=== PATIENT | female | born 1965 ===

== ENCOUNTER 2016-05-20 15:04 | Observation (INO) | payer OTHER ==
[2016-05-20] MEDS ORDERED: Iohexol 240 (50 ml) PO STA (16:04)
[2016-05-20] MEDS ORDERED: Sodium Chloride 0.9% 1,000 ML IV ONE (16:04)
--- NOTE | 2016-05-20 16:04 | C.PDOC ---
History Of Present Illness <Lizz Arechiga - Last Filed: 05/20/16 18:55> <Palmer Hernandez [place] - Last Filed: 05/20/16 20:26> 50-year-old female, presents to the emergency department with complaints of left -inguinal pain that started two days ago. Pain is persistent in nature and non- radiating. Patient took Pepto-Bismol with minimal relief. Patient states she feels "gas" and has associated dark stool. Secondary complaint is pain in lower extremities which feels like her lupus flare-up. Denies nausea/vomiting, dizziness, chest pain, back pain, or any other associated symptoms. No other complaints at this time. Of note, patient was seen by GI doctor yesterday. GI Dr Trista Bhatia (Lizz Arechiga) History Per: Patient History/Exam Limitations: no limitations Onset/Duration Of Symptoms: Days Current Symptoms Are (Timing): Still Present <Lizz Arechiga - Last Filed: 05/20/16 18:55> <Palmer Hernandez - Last Filed: 05/20/16 20:26> Time Seen by Provider: 05/20/16 15:41 Chief Complaint (Nursing): Abdominal Pain Past Medical History Reviewed: Historical Data, Nursing Documentation, Vital Signs - Medical History PMH: Anxiety, Back Problems, Depression, Emphysema, Fibromyalgia, Osteoporosis, Rheumatoid Arthritis Denies: Diabetes, Hepatitis, HIV, HTN, Chronic Kidney Disease, Seizures, Sexually Transmitted Disease Family History: States: Unknown Family Hx - Social History Hx Tobacco Use: Yes Hx Alcohol Use: No Hx Substance Use: Yes - Immunization History Hx Tetanus Toxoid Vaccination: No Hx Influenza Vaccination: Yes Hx Pneumococcal Vaccination: No <Lizz Arechiga - Last Filed: 05/20/16 18:55> Vital Signs: Last Vital Signs Temp 98.1 F 05/20/16 15:07 Pulse 75 05/20/16 16:51 Resp 18 05/20/16 16:51 BP 110/78 05/20/16 16:51 Pulse Ox 100 05/20/16 18:56 - [facility] Procedures DETOXIFICATION SERVICES FOR SUBSTANCE ABUSE TREATMENT (01/28/16) Review Of Systems Except As Marked, All Systems Reviewed And Found Negative. Constitutional: Negative for: Fever, Chills Cardiovascular: Negative for: Chest Pain Respiratory: Negative for: Cough, Shortness of Breath Gastrointestinal: Positive for: Abdominal Pain. Negative for: Nausea, Vomiting Genitourinary: Negative for: Dysuria, Frequency, Vaginal Discharge, Vaginal Bleeding Musculoskeletal: Positive for: Leg Pain. Negative for: Back Pain Skin: Negative for: Rash Neurological: Negative for: Weakness, Numbness, Headache, Dizziness <Lizz Arechiga - Last Filed: 05/20/16 18:55> Physical Exam - Physical Exam Appears: Non-toxic, No Acute Distress Skin: Normal Color, Warm, Dry Eye(s): bilateral: Normal Inspection, PERRL, EOMI Nose: Normal Neck: Normal ROM Cardiovascular: Rhythm Regular Respiratory: Normal Breath Sounds Gastrointestinal/Abdominal: Soft, Tenderness (mild, left suprapubic), No Guarding, No Rebound Rectal: Other (NO STOOL) Back: Normal Inspection Extremity: Normal ROM Neurological/Psych: Oriented x3, Normal Speech <Lizz Arechiga - Last Filed: 05/20/16 18:55> ED Course And Treatment - Laboratory Results Result Diagrams: 05/20/16 16:49 05/20/16 16:49 O2 Sat by Pulse Oximetry: 100 <Lizz Arechiga - Last Filed: 05/20/16 18:55> - Laboratory Results Result Diagrams: 05/20/16 16:49 05/20/16 16:49 - CT Scan/US CT abdomen/pelvis Other Rad Studies (CT/US): Read By Radiologist, Radiology Report Reviewed CT/US Interpretation: IMPRESSION: Nonobstructing left renal stones, no ureteral stones or. hydronephrosis; no acute solid visceral or bowel abnormality; nonvisualization. the appendix; minimal diverticulosis without CT findings of diverticulitis. . Additional findings as described above. Progress Note: Pt was signed out to me by Dr. Arechiga at 7pm to f/up CT scan results. Pt feels better and wants to go home. Reassessment Condition: Improved <Palmer Hernandez - Last Filed: 05/20/16 20:26> ED OBSERVATION Date of observation admission: 05/20/16 Time of observation admission: 16:00 <Lizz Arechiga - Last Filed: 05/20/16 18:55> <Palmer Hernandez - Last Filed: 05/20/16 20:26> - Observation admission statement Patient is being placed in observation because:: ABD PAIN; LUPUS EXAC (Lizz Arechiga) - Goals of Observation Goals of observation are:: NEG ACUTE ABD; SX IMPROVE (Lizz Arechiga) - Progress Note Progress Note: 05/20/16 18:55 EXAM IMPROVE COMPARED TO PRIOR S/P MORPHINE AND DILAUDID. PENDING CT S/O DR MYAH MILLER CT, DISPO (Lizz Arechiga) Disposition <Lizz Arechiga - Last Filed: 05/20/16 18:55> Counseled Patient/Family Regarding: Studies Performed, Diagnosis, Need For Followup, Rx Given - Disposition Disposition Time: 20:26 <Palmer Hernandez - Last Filed: 05/20/16 20:26> - Disposition Disposition: HOME/ ROUTINE Condition: IMPROVED - Clinical Impression Clinical Impression: Abdominal pain, Diarrhea, Urinary tract infection - Scribe Statement The provider has reviewed the documentation as recorded by the Scribe <Lizz Arechiga - Last Filed: 05/20/16 18:55> <Palmer Hernandez - Last Filed: 05/20/16 20:26> - Scribe Statement Daron Thomas All medical record entries made by the Scribe were at my direction and personally dictated by me. I have reviewed the chart and agree that the record accurately reflects my personal performance of the history, physical exam, medical decision making, and the department course for this patient. I have also personally directed, reviewed, and agree with the discharge instructions and disposition. (Lizz Arechiga)
[2016-05-20] MEDS ORDERED: Morphine 4 MG/ML VIAL ONE (16:40)
[2016-05-20] MEDS ORDERED: Iohexol 240 (50 ml) ONE (16:41)
[2016-05-20 16:53] LABS: BASO % 0.4 % (0.0-2.0); EOS # 0.1 K/uL (0.0-0.7); EOS % 0.9 % (0.0-4.0); HEMATOCRIT 45.2 % (34.0-47.0); LYMPH # 2.8 K/uL (1.0-4.3); LYMPH % 37.4 % (20.0-40.0); MEAN CELL VOLUME 84.9 fL (81.0-99.0); MEAN CORPUSCULAR HEMOGLOBIN 27.8 pg (27.0-31.0); MEAN CORPUSCULAR HGB CONC 32.8 g/dL (33.0-37.0); MEAN PLATELET VOLUME 9.1 fL (7.2-11.7); MONO # 0.5 K/uL (0.0-0.8); MONO % 6.1 % (0.0-10.0); NRBC % 0.1 % (0.0-2.0); RED CELL DISTRIBUTION WIDTH 13.7 % (11.5-14.5); WHITE BLOOD COUNT 7.5 K/uL (4.8-10.8)
[2016-05-20 16:54] VITALS: RESP 18
[2016-05-20 17:02] LABS: CHLORIDE 99 mmol/L (98-107); POTASSIUM 5.5 mmol/L (3.6-5.2); SODIUM 139 mmol/L (132-148)
[2016-05-20 17:03] LABS: RBC URINE 2 /hpf (0-3); TRANSITIONAL EPITHIAL < 1 /hpf (0-3); URINE BACTERIA MOD (<OCC); URINE BILIRUBIN NEGATIVE (NEGATIVE); URINE BLOOD NEGATIVE (NEGATIVE); URINE COLOR Yellow (YELLOW); URINE GLUCOSE (UA) NORMAL (Normal); URINE KETONE NEGATIVE (NEGATIVE); URINE PROTEIN NEGATIVE (NEGATIVE); URINE UROBILINOGEN NORMAL mg/dL (0.2-1.0); WBC URINE 10 /hpf (0-5)
[2016-05-20 17:04] LABS: GFR AFRICAN-AMERICAN > 60; URINE LEUKOCYTE ESTERASE 1+ Leu/uL (Negative)
[2016-05-20 17:05] LABS: ALB/GLOB RATIO 1.2 (1.0-2.1); ALKALINE PHOSPHATASE 69 U/L (38-126); ALT/SGPT 25 U/L (9-52); AST/SGOT 50 U/L (14-36); BLOOD UREA NITROGEN 9 mg/dL (7-17); CALCIUM 8.6 mg/dl (8.6-10.4); CARBON DIOXIDE 26 mmol/L (22-30); GLUCOSE,RANDOM 79 mg/dL (65-105); TOTAL PROTEIN 7.8 g/dL (6.3-8.3)
[2016-05-20] MEDS ORDERED: HYDROmorphone 0.5 mg/0.5 ml ISec IVP STA (18:04)
[2016-05-20] MEDS ORDERED: HYDROmorphone 1 mg/ml ISec ONE (18:15)
--- NOTE | 2016-05-20 20:09 | CT ---
EXAM: CT Abdomen and Pelvis With Intravenous Contrast. CLINICAL HISTORY: 50 years old, female; Pain and condition or disease; Other: Gi bleed; Abdominal pain; Localized; Left lower quadrant (llq); Additional info: Llq pain, gi bleed; Ho kidney stone TECHNIQUE: Axial computed tomography images of the abdomen and pelvis with intravenous contrast. This CT exam was performed using one or more of the following dose reduction techniques: automated exposure control, adjustment of the mA and/or kV according to patient size, and/or use of iterative reconstruction technique. Coronal and sagittal reformatted images were created and reviewed. CONTRAST: 50 mL of omnipaque 240 administered intravenously. EXAM DATE/TIME: 05/20/2016 4:05 PM COMPARISON: Prior images are not available for review. FINDINGS: Lower thorax: Heart size is normal. There is a small hiatal hernia. There is small amount of oral contrast in the distal esophagus. There is minimal scarring at the lung bases. There is pleural thickening at the left base. ABDOMEN: Liver: unremarkable Gallbladder and bile ducts: unremarkable Pancreas: unremarkable Spleen: unremarkable Adrenals: unremarkable Kidneys and ureters: There are tiny nonobstructing left renal stones. 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 Stomach and bowel: Stomach is incompletely distended which accentuates the gastric wall.Bowel rotation is normal.There is no obstruction. Terminal ileum is unremarkable. Appendix is not visualized. There is no pericecal inflammation. Cecum is low in the pelvis.Colon is incompletely distended which limits evaluation.there is oral contrast in ascending and transverse colon. There is minimal radiopaque material in stool in the descending colon and sigmoid. There is diverticulosis. No bleeding site is identified. Appendix: See stomach and bowel PELVIS: Bladder: Bladder is partially distended Reproductive: Uterus and adnexal structures are unremarkable. ABDOMEN and PELVIS: Intraperitoneal space: There is no significant fluid.There is no free air. Bones/joints: There are degenerative changes in the osseus structures. Soft tissues: There is a fat-containing umbilical hernia. Vasculature: There are vascular calcifications. Lymph nodes: There is shotty para-aortic adenopathy IMPRESSION: Nonobstructing left renal stones, no ureteral stones or hydronephrosis; no acute solid visceral or bowel abnormality; nonvisualization the appendix; minimal diverticulosis without CT findings of diverticulitis Additional findings as described above.
[2016-05-20 20:49] VITALS: BP 129/88; PULSE 70; TEMP 98.3; O2SAT 96
== END 2016-05-20 20:15 | disposition home or self-care (01) ==
LOC: C.ER 15:04 → C.9OBSV 16:04
PROVIDERS: ADMIT Emergency Medicine; ATTEND Emergency Medicine
DX: R10.9 Unspecified abdominal pain (principal); R19.7 Diarrhea, unspecified; Z87.891 Personal history of nicotine dependence; M32.9 Systemic lupus erythematosus, unspecified; N39.0 Urinary tract infection, site not specified; J43.9 Emphysema, unspecified
CPT/HCPCS: 36415; 74176; 80053; 81001; 83690; 85025; 96374; 96375; 99283; G0328; G0378; J1170 ×2; J2270; J2405; Q9966

== ENCOUNTER 2018-05-03 15:00 | Outpatient (CLI) | payer OTHER | END 2018-05-03 15:01 | disposition home or self-care (01) | LOC: C.MAMMO 15:00 | DX: R22.9 Localized swelling, mass and lump, unspecified (principal) ==

== ENCOUNTER → 2018-05-12 | Outpatient (CLI) | payer OTHER | LOC: C.MRIC 15:19 | DX: M51.26 Other intervertebral disc displacement, lumbar region (principal) ==

== ENCOUNTER 2018-05-16 09:37 | Outpatient (CLI) | payer OTHER | END 2018-05-16 09:38 | disposition home or self-care (01) | LOC: C.SPRAD 09:37 | DX: N63.20 Unspecified lump in the left breast, unspecified quadrant (principal) ==

== ENCOUNTER 2018-07-11 12:44 | Outpatient (CLI) | payer OTHER | END 2018-07-11 12:45 | disposition home or self-care (01) | LOC: C.CARD 12:44 ==